=== PATIENT | female | born 1970 | race Caucasian/White ===

== ENCOUNTER → 2020-07-30 | Outpatient (CLI) | payer BC ==
--- NOTE | 2020-07-30 11:42 | ECHOF ---
Referral Reason:I10 hypertention MEASUREMENTS -------- HEIGHT: 170.2 cm WEIGHT: 133.8 kg BP: RVIDd: 3.5 cm (< 3.3) IVSd: 1.3 cm (0.6 - 1.1) LVIDd: 3.1 cm (3.9 - 5.3) LVPWd: 2.0 cm (0.6 - 1.1) IVSs: 1.6 cm LVIDs: 2.9 cm LVPWs: 2.1 cm LAESV Index (A-L): 21.52 ml/m Ao Diam: 3.1 cm (2.0 - 3.7) AV Cusp: 1.9 cm (1.5 - 2.6) MV E Wilfredo: 0.63 m/s MV DecT: 223 ms MV A Wilfredo: 0.80 m/s MV E/A Ratio: 0.79 RAP: 5.00 mmHg RVSP: 14.20 mmHg FINDINGS -------- Sinus rhythm. This was a technically adequate study. Morbid Obesity The left ventricular size is normal. There is mild concentric left ventricular hypertrophy. Overa ll left ventricular systolic function is low-normal with, an EF between 50 - 55 %. The right ventricle is normal in size. Normal LA size by volume 22+/-6 ml/m2. The right atrial size is normal. The aortic valve is trileaflet, and appears structurally normal. No aortic stenosis or regurgitation. Mild mitral regurgitation is present. Mild tricuspid regurgitation present. Right ventricular systolic pressure is normal at < 35 mmHg. The pulmonic valve was not well visualized. The aortic root size is normal. Echo free space represents a pericardial fat pad. CONCLUSIONS -------- 1. Morbid Obesity 2. The left ventricular size is normal. 3. There is mild concentric left ventricular hypertrophy. 4. Overall left ventricular systolic function is low-normal with, an EF between 50 - 55 %. 5. The right ventricle is normal in size. 6. Normal LA size by volume 22+/-6 ml/m2. 7. The right atrial size is normal. 8. The aortic valve is trileaflet, and appears structurally normal. No aortic stenosis or regurgitati on. 9. Mild mitral regurgitation is present. 10. Mild tricuspid regurgitation present. 11. The pulmonic valve was not well visualized. 12. The aortic root size is normal. 13. Echo free space represents a pericardial fat pad. SAFETY INVESTIGATOR: Yris Sam RDCS
== END ==
LOC: RADECHMAIN 10:21
PROVIDERS: ATTEND Family Medicine
DX: I08.1 Rheumatic disorders of both mitral and tricuspid valves (principal); I10 Essential (primary) hypertension
CPT/HCPCS: 93005; 93306

== ENCOUNTER → 2020-11-05 | Outpatient (CLI) | payer BC | LOC: CPPFTMAIN 09:00 | PROVIDERS: ATTEND Family Medicine | DX: R06.02 Shortness of breath (principal); B94.8 Sequelae of other specified infectious and parasitic diseases | CPT/HCPCS: 94060; 94726; 94729 ==

== ENCOUNTER → 2022-02-26 | Outpatient (CLI) | payer BC ==
--- NOTE | 2022-02-26 13:01 | CT ---
EXAMINATION TYPE: CT abdomen pelvis wo con CT DLP: 1292 mGycm, Automated exposure control for dose reduction was used. DATE OF EXAM: 02/26/2022 12:46 PM COMPARISON: None. CLINICAL INDICATION:Female, 51 years old with history of R30.9 PAINFUL MICTURITION, UNSPECIFIED; Rt f lank pain, painful micturition, history of renal stones TECHNIQUE: Standard CT of the abdomen and pelvis without IV or oral contrast. Lack of IV or oral co ntrast limits evaluation of solid and hollow organ viscera. Coronal and sagittal reformats were perfo rmed. FINDINGS: LOWER CHEST: Posterior dependent subsegmental atelectasis is noted. Mild organomegaly. No pericardial effusion. ABDOMEN LIVER: Unremarkable noncontrast appearance. GALLBLADDER AND BILE DUCTS: Unremarkable. PANCREAS: Unremarkable noncontrast appearance. SPLEEN: Unremarkable noncontrast appearance. ADRENAL GLANDS: Unremarkable noncontrast appearance. KIDNEYS AND URETERS: Minimal right hydroureteronephrosis. No hydronephrosis for the left kidney. Ther e are 2 nonobstructing right renal calculi with one in the midportion measuring up to 4 mm and one in the lower portion measuring up to 4 mm. No left renal calculi. Minimal right perinephric fat strand ing. No perinephric fluid collections. PELVIS BLADDER: Underdistended. There is a 6 mm calculus at the right bladder base. REPRODUCTIVE: Anteverted uterus. 6.9 x 6.7 cm left ovarian cystic lesion. ABDOMEN & PELVIS STOMACH AND BOWEL: Small hiatal hernia, duodenum is unremarkable. No focal wall thickening. Few scatt ered colonic diverticula of the splenic flexure without evidence for acute diverticulitis. The append ix is within normal limits. No evidence of bowel obstruction. PERITONEUM: No evidence of pneumoperitoneum or free fluid. VASCULATURE: No evidence of aortic aneurysm. Multiple pelvic phleboliths. No ureteral calculi. MUSCULOSKELETAL: No acute osseous abnormalities LYMPH NODES: No gross evidence for lymphadenopathy. SOFT TISSUE/ABDOMINAL WALL: Unremarkable IMPRESSION: 1. Minimal right hydroureteronephrosis. A 6 mm calculus demonstrated within the right urinary bladder base past the ureterovesical junction related to recent passage. 2. There are 2 nonobstructive right renal calculi measuring up to 4 mm. 3. Indeterminate 6.9 cm left ovarian cystic lesion. Dedicated nonemergent pelvic ultrasound is recomm ended for further characterization.
== END | disposition home or self-care (01) ==
LOC: RADCTMAIN 12:22
PROVIDERS: ATTEND Family Medicine
DX: N13.2 Hydronephrosis with renal and ureteral calculous obstruction (principal)
CPT/HCPCS: 74176

== ENCOUNTER → 2022-03-10 | Outpatient (CLI) | payer BC ==
--- NOTE | 2022-03-10 07:41 | US ---
EXAMINATION TYPE: US pelvis complete transvag DATE OF EXAM: 03/10/2022 COMPARISON: CT 02/26/2022 CLINICAL HISTORY: N83.209 CYST OF OVARY. Ovarian cyst TECHNIQUE: Transvaginal (TV) and Transabdominal (TA) . Transabdominal sonographic images of the pel vis were acquired. Transvaginal sonographic images were medically necessary to better assess the fol lowing anatomy: Uterus and ovaries Date of LMP: 02/01/2022 EXAM MEASUREMENTS: Uterus: 8.0 x 4.6 x 4.8 cm Endometrial Stripe: 0.8 cm Right Ovary: Obscured by overlying bowel gas Left Ovary: 7.4 x 6.4 x 5.9 cm 1. Uterus: Anteverted Multiple Nabothian cysts in cervix, largest= 1.3 cm 2. Endometrium: wnl 3. Right Ovary: Obscured by overlying bowel gas 4. Left Ovary: Simple cyst as visualized on CT= 5.9 x 5.8 x 7.1 cm. No internal vascularity. No sept ations or thick wall. 5. Bilateral Adnexa: wnl 6. Posterior cul-de-sac: wnl IMPRESSION: 1. No acute pelvic process. 2. Left ovarian simple cyst measuring up to 7.1 cm. Follow-up ultrasound in 6-12 months is recommend ed.
== END | disposition home or self-care (01) ==
LOC: RADUSWWP 07:00
PROVIDERS: ATTEND Family Medicine
DX: N83.209 Unspecified ovarian cyst, unspecified side (principal)
CPT/HCPCS: 76830; 76856

== ENCOUNTER → 2024-07-13 | Outpatient (CLI) | payer BC ==
[2024-07-13 15:17] LABS: Basophils # (A) 0.05 X 10*3/uL (0.00-0.10); Basophils % (A) 0.7 %; Eosinophils # (A) 0.32 X 10*3/uL (0.04-0.35); Eosinophils % (A) 4.7 %; HGB 14.4 g/dL (12.0-15.0); Lymphocytes # (A) 2.37 X 10*3/uL (0.90-5.00); Lymphocytes % (A) 34.6 %; MCH 33.3 pg (27.0-32.0); MCHC 32.7 g/dL (32.0-37.0); MCV 101.9 FL (80.0-97.0); Mean Platelet Volume 10.7 FL (9.5-12.2); Monocytes # (A) 0.83 X 10*3/uL (0.20-1.00); Monocytes % (A) 12.1 %; NRBC Per 100 WBC 0 X 10*3/uL (0.00-0.01); Neutrophils # (A) 3.25 X 10*3/uL (1.80-7.70); Neutrophils % (A) 47.6 %; Platelet Count 154 X 10*3/uL (140-440); RBC 4.32 X 10*6/uL (4.10-5.20); RDW 12.4 % (11.5-14.5); WBC 6.84 X 10*3/uL (4.50-10.00)
[2024-07-13 20:42] LABS: ALT 493 U/L (8-44); AST 245 U/L (13-35); Albumin 3.8 g/dL (3.8-4.9); Albumin/Globulin Ratio 1.31 Ratio (1.60-3.17); Alkaline Phosphatase 124 U/L (41-126); BUN/Creat Ratio 24.86 Ratio (12.00-20.00); Blood Urea Nitrogen 17.4 mg/dL (9.0-27.0); Calcium 9.1 mg/dL (8.7-10.3); Carbon Dioxide 24.3 mmol/L (21.6-31.8); Chloride 108 mmol/L (96-109); Chol/HDL Ratio 3.19 Ratio; Globulin 2.9 g/dL (1.6-3.3); Glucose 95 mg/dL (70-110); LDL Cholesterol,Calculated 96.9 mg/dL (0.0-131.0); Potassium 4.6 mmol/L (3.5-5.5); Sodium 143 mmol/L (135-145); T4, Free (Free Thyroxine) 1.34 ng/dL (0.80-1.80); Total Bilirubin 0.8 mg/dL (0.3-1.2); Total Protein 6.7 g/dL (6.2-8.2); VLDL Calculation 15.72 mg/dL (5.00-40.00)
== END | disposition home or self-care (01) ==
LOC: LABWHC1 12:30
PROVIDERS: ATTEND Family Medicine
DX: Z00.00 Encounter for general adult medical examination without abnormal findings (principal); R53.83 Other fatigue
CPT/HCPCS: 36415; 80053; 80061; 82306; 83036; 84439; 84443; 85025

== ENCOUNTER → 2024-07-27 | Outpatient (CLI) | payer BC ==
--- NOTE | 2024-07-27 09:50 | US ---
EXAMINATION TYPE: US liver DATE OF EXAM: 07/27/2024 COMPARISON: CT February 26, 2022 CLINICAL INDICATION: Female, 53 years old with history of R74.8 ABNORMAL LEVELS OF OTHER SERUM ENZYME S; Elevated LFT's TECHNIQUE: Grayscale and color Doppler imaging of the right upper quadrant was performed. FINDINGS: EXAM MEASUREMENTS: Liver Length: 16.5 cm Gallbladder Wall: 0.2 cm CBD: 0.4 cm Right Kidney: 12.3 x 5.2 x 4.9 cm VIDEO CONTROL ENGINEER NOTES: Pancreas: 3mm panc duct visualized, tail obscured by overlying bowel gas Liver: Heterogeneous Gallbladder: wnl Evidence for sonographic Bell's sign: No CBD: wnl Right Kidney: No evidence of hydro, 2 echogenic foci visualized 7mm in size Probable small nonobstructing right renal calculi. IMPRESSION: Liver upper limits of normal in size. No focal intrahepatic mass or intrahepatic ductal dilatation is seen. No ascites is present. [facility], , 07/27/2024 9:48 AM
== END | disposition home or self-care (01) ==
LOC: RADUSWWP 08:46
PROVIDERS: ATTEND Family Medicine
DX: R74.8 Abnormal levels of other serum enzymes (principal)
CPT/HCPCS: 76705

== ENCOUNTER → 2024-09-21 | Outpatient (CLI) | payer BC ==
--- NOTE | 2024-09-21 15:28 | NM ---
EXAMINATION TYPE: NM hepatobiliary w EF DATE OF EXAM: 09/21/2024 COMPARISON: Ultrasound liver July 27, 2024 CLINICAL INDICATION: Female, 53 years old with history of R74.8 ABNORMAL LEVELS OF OTHER SERUM ENZYME S; epigastric pain TECHNIQUE: After the intravenous administration of 5.03 mCi Tc 99m Mebrofenin hepatobiliary scintigra phy is performed. Immediate images post injection. FINDINGS: There is satisfactory initial accumulation of tracer by the liver. The gallbladder is visualized wit hin 10 minutes. The small bowel activity is noted within 20 minutes. At one hour 8 ounces of oral e nsure plus is given to mimic CCK and gallbladder ejection fraction is calculated at 60 %, in the norm al range. Therefore there is no scintigraphic evidence of cystic or common bile duct obstruction to suggest acute cholecystitis or gallbladder dyskinesia. IMPRESSION: Exam is within normal limits. [facility], , 09/21/2024 3:26 PM
== END | disposition home or self-care (01) ==
LOC: RADNMMAIN 12:54
PROVIDERS: ATTEND Family Medicine
DX: R10.13 Epigastric pain (principal); R74.8 Abnormal levels of other serum enzymes
CPT/HCPCS: 78226; A9537